=== PATIENT | female | born 1975 | race Caucasian/White ===

== ENCOUNTER 2018-03-21 07:55 | Day surgery (SDC) | payer OTHER ==
[~2018-03-21] VITALS: Ht 157.5 cm; Wt 77.1 kg
--- NOTE | ~2018-03-21 | OR ---
[facility] [address], [place] [address] [place] DATE OF OPERATION: 03/21/2018 SURGEON: Larry Avila MD PREOPERATIVE DIAGNOSIS: Partial-thickness rotator cuff tear, right shoulder. POSTOPERATIVE DIAGNOSIS: Partial-thickness rotator cuff tear, right shoulder. ADDITIONAL DIAGNOSES: 1. Impingement. 2. Right anterior labral tear, right shoulder. PROCEDURE: Right shoulder arthroscopy with debridement of labral tear, debridement of articular surface partial-thickness rotator cuff tear, and a subacromial decompression. ANESTHESIA: General. SPECIMENS AND COMPLICATIONS: There were no specimens or complications. TOURNIQUET: Not used. BLOOD LOSS: Minimal. WHAT WAS DONE: The patient was taken to the operating room. After anesthesia was induced and airway secured, the patient was placed in a modified beach chair position, and prepped and draped in a routine sterile fashion. The bony topography was outlined with a skin marking pen and the arthroscope was introduced into the shoulder joint through the standard posterior portal. Arthroscopy of the shoulder joint revealed an unremarkable glenoid and unremarkable humeral head. The biceps tendon, the biceps anchor were also unremarkable. There was a flap tear of the anterior aspect of the glenoid labrum (about the 3 o'clock position). It was only attached by a tiny stalk. We therefore created an anterior portal using a switching stick technique. Introduced the VAPR electrosurgical PATIENT NAME: ELIANA MATTHEW OPERATIVE REPORT DATE OF : 71 REPORT #: [id number] PHYSICIAN: LARRY AVILA MD PCP: UNASSIGNED DOCTOR REPORT IS CONFIDENTIAL AND NOT TO BE RELEASED WITHOUT AUTHORIZATION [facility] [address] [place], [place] [address] Draft device and removed the labral tear. We then able to identify the subscapularis tendon, which was unremarkable. The biceps tendon was unremarkable. There was a partial-thickness tear of the supraspinatus. Again, we introduced the VAPR and moved it up over the biceps tendon and used it to gently debride the articular surface partial-thickness rotator cuff tear of the supraspinatus. Infraspinatus was unremarkable. There was no additional intra-articular pathology. We then maneuvered the scope into the subacromial space and created an axillary lateral portal. The VAPR was introduced and the rather hemorrhagic subacromial bursitis was encountered. A subacromial bursectomy was done with the VAPR. We then used the VAPR to remove the soft tissue off the undersurface of the acromion. We then introduced a 4 mm barrel clarissa and did a generous subacromial decompression. We then reinspected the bursal surface of the supraspinatus and the infraspinatus as well as the subscap and could not find any additional cuff pathology. The subacromial space was irrigated and drained. The portals were closed. Sterile dressings applied. She was placed in a sling, awakened, and taken to recovery room where she arrived in stable condition. Counts were correct and antibiotic protocols were followed. Larry Avila MD WFB/MODL /[id number] Copies: ~ PATIENT NAME: NANCY MATTHEWTH BAMBI OPERATIVE REPORT DATE OF : 71 REPORT #: [id number] PHYSICIAN: LARRY AVILA MD PCP: UNASSIGNED DOCTOR REPORT IS CONFIDENTIAL AND NOT TO BE RELEASED WITHOUT AUTHORIZATION
[~2018-03-21 07:55] MED LIST: LISINOPRIL5 MG PO; OXYCODONE HCL5 MG PO; RANITIDINE HCL150 MG PO
--- NOTE | 2018-03-21 12:12 | NUR ---
[facility]21[facility]18 [facility] PACU WITH ORAL AIRWAY IN PLACE. 1208 ORAL AIRWAY REMOVED. PT AWAKE WITH NO C/O'S. OXYGEN DECREASED TO 6L VIA MASK WITH SATS 100%. ICE TO R SHOULDER.
--- NOTE | 2018-03-21 12:39 | NUR ---
FAMILY @ BS. ICED WATER GIVEN. CALL LIGHT W/IN REACH.
--- NOTE | 2018-03-21 12:49 | NUR ---
PUDDING GIVEN. PATIENT UP TO BR W/RN ASSIST. PT REPORTS BEING "GROGGY" AND AMBULATES WELL. PATIENT VOIDS AND IS BACK IN BED.
[2018-03-21] MEDS ORDERED: PERCOCET 10-321 EACH PO (13:13)
--- NOTE | 2018-03-21 13:35 | NUR ---
PATIENT DENIES PAIN. TOLERATED PUDDING. REQUESTS MORE TO EAT. SANDWICH AND SOUP ORDERED. VS CHECKED. BP LOW. RIGHT SHOULDER DRESSINGS CDI. MOTHER AT BEDSIDE. CALL LIGHT WITHIN REACH.
--- NOTE | 2018-03-21 14:40 | NUR ---
PATIENT DROWSY, SLEEPING. AWAKENS TO VOICE, BUT THEN FALLS BACK TO SLEEP QUICKLY. DENIES PAIN. VS CHECKED. SON AT BEDSIDE. LUNCH AT BEDSIDE. CALL LIGHT WITHIN REACH. IV SALINE LOCKED.
== END 2018-03-21 15:20 | disposition home or self-care (01) ==
LOC: OPS 07:55 → DS 07:55 → OPS 09:30 → DS 09:30 → OPS 15:20
PROVIDERS: Orthopaedic Surgery
PROC: 0RNJ4ZZ Release Right Shoulder Joint, Percutaneous Endoscopic Approach (ICD-10-PCS; 2018-03-21)
PROC: 0RBJ4ZZ Excision of Right Shoulder Joint, Percutaneous Endoscopic Approach (ICD-10-PCS; principal; 2018-03-21 09:30)
DX: M75.111 Incomplete rotator cuff tear or rupture of right shoulder, not specified as traumatic (principal); M75.51 Bursitis of right shoulder; S43.491A Other sprain of right shoulder joint, initial encounter; M75.41 Impingement syndrome of right shoulder; G47.33 Obstructive sleep apnea (adult) (pediatric); F17.210 Nicotine dependence, cigarettes, uncomplicated; I10 Essential (primary) hypertension; Z79.899 Other long term (current) drug therapy
CPT/HCPCS: 01630; 64415; 76942; J0330; J0690; J0735; J1100; J1885; J2250; J2405; J2704; J2765; J3010; J7120

== ENCOUNTER 2020-08-30 18:39 | Emergency (ER) | payer OTHER ==
[~2020-08-30] VITALS: Ht 157.5 cm; Wt 77.1 kg
[~2020-08-30 18:39] MED LIST changes: +PERCOCET 10-321 EACH PO
[2020-08-30] MEDS ORDERED: ZESTRIL40 MG PO (18:54)
[2020-08-30] MEDS ORDERED: KEFLEX500 MG PO (19:16)
== END 2020-08-30 19:30 | disposition home or self-care (01) ==
LOC: ED 18:39
DX: S00.86XA Insect bite (nonvenomous) of other part of head, initial encounter (principal); W57.XXXA Bitten or stung by nonvenomous insect and other nonvenomous arthropods, initial encounter; I10 Essential (primary) hypertension; F17.200 Nicotine dependence, unspecified, uncomplicated; Z88.5 Allergy status to narcotic agent; Z79.899 Other long term (current) drug therapy
CPT/HCPCS: 99282

== ENCOUNTER 2023-03-18 21:27 | Emergency (ER) | payer OTHER ==
[~2023-03-18] VITALS: Ht 157.5 cm; Wt 72.1 kg
--- OUTSIDE RECORDS SUMMARY | ~2023-03-18 | XMS | Continuity of Care Document ---
Demographics + + + | Address | [address] | | | [place] [address] | + + + | Preferred Language | Unknown | + + + | Marital Status | Never | + + + | Judaism Affiliation | Unknown | + + + | Race | White | + + + | Ethnic Group | Not or | + + + Author + + + | Author | [facility] | + + + | Organization | [facility] | + + + | Address | [address] | | | [place] [address] | + + + | Phone | | + + + Care Team Providers + + + + | Care Cotton Stomper Name | Role | Phone | + + + + Unavailable | Unavailable | + + + + Unavailable | Unavailable | + + + + Allergies and Intolerances + + + + + + | date | description | facility | reaction | severity | + + + + + + | (no date) | Hydrocodone | [facility] | (no reaction) | (no severity) | | [facility] | | | + + + + + + | (no date) | Itching | [facility] | (no reaction) | (no severity) | | | [facility] | | | + + + + + + | (no date) | Hydrocodone | [facility] | (no reaction) | (no severity) | | | | [facility] | | | + + + + + + | (no date) | Hydrocodone | [facility] | (no reaction) | (no severity) | | | | [facility] | | | + + + + + + Encounters No information. Functional Status No information. Immunizations No information. Medications + + + + | date | description | facility | + + + + | 2022-09-04 00:00 | OXYCODONE HCL | [facility] | + + + + | 2022-09-04 00:00 | OXYCODONE | [facility] | | | HCL/ACETAMINOPHEN | | + + + + | 2022-09-04 00:00 | RANITIDINE HCL | [facility] | + + + + | 2022-09-04 00:00 | LISINOPRIL | [facility] | + + + + | 2020-08-30 00:00 | CEPHALEXIN | [facility] | + + + + | 2022-09-04 00:00 | LISINOPRIL | [facility] | + + + + Problems + + + + | date | description | facility | + + + + | 2022-09-04 00:00 | Patient left without being | [facility] | | | seen | | + + + + Procedures No information. Results/Labs No information. Social History No information. Vital Signs + + + +---------+ | date | measurement | value | units | + + + +---------+ | 2022-09-04 00:00 | BMI | 31.1 | kg/m2 | + + + +---------+ | 2022-09-04 00:00 | BP_diastolic | 83 | mmHg | + + + +---------+ | 2022-09-04 00:00 | BP_systolic | 168 | mmHg | + + + +---------+ | 2022-09-04 00:00 | heart_rate | 99 | /min | + + + +---------+ | 2022-09-04 00:00 | height_metric | 157.48 | cm | + + + +---------+ | 2022-09-04 00:00 | height_standard | 62 | in | + + + +---------+ | 2022-09-04 00:00 | o2_saturation | 100 | % | + + + +---------+ | 2022-09-04 00:00 | respiration_rate | 16 | /min | + + + +---------+ | 2022-09-04 00:00 | temperature_metric | 36.72 | C | | | | | | + + + +---------+ | 2022-09-04 00:00 | | 98.1 | F | | | temperature_standar | | | | | d | | | + + + +---------+ | 2022-09-04 00:00 | weight_metric | 77.11 | kg | + + + +---------+ | 2022-09-04 00:00 | weight_standard | 170 | lb | + + + +---------+"
--- OUTSIDE RECORDS SUMMARY | ~2023-03-18 | XMS | Continuity of Care Document ---
Demographics + + + | Address | [facility] [address] | | | [place] [address] | + + + | Preferred Language | Unknown | + + + | Marital Status | Never | + + + | Gnosticism Affiliation | Unknown | + + + | Race | White | + + + | Ethnic Group | Not or | + + + Author + + + | Author | [facility] | + + + | Organization | [facility] | + + + | Address | [address] | | | [place] [address] | + + + | Phone | | + + + Care Team Providers + + + + | Care Sheet Metal Erector Name | Role | Phone | + [...] | 2022-09-04 00:00 | OXYCODONE HCL | [facility] | + + + + | 2022-09-04 00:00 | OXYCODONE | [facility] | | | HCL/ACETAMINOPHEN | | + + + + | 2022-09-04 00:00 | RANITIDINE HCL | [facility] | + + + + | 2022-09-04 00:00 | LISINOPRIL | [facility] | + + + + | 2020-08-30 00:00 | CEPHALEXIN | [facility] | + + + + | 2022-09-04 00:00 | LISINOPRIL | [facility] | + + + + Problems + + + + | date | description | facility | + + + + | 2022-09-04 00:00 | Patient left without being | [facility] | | | seen | | + [...]
[~2023-03-18 21:27] MED LIST changes: +KEFLEX500 MG PO; +ZESTRIL40 MG PO
[2023-03-18 23:13] VITALS: BP 175/95
== END 2023-03-18 23:14 | disposition home or self-care (01) ==
LOC: ED 21:27
DX: S01.01XA Laceration without foreign body of scalp, initial encounter (principal); W22.8XXA Striking against or struck by other objects, initial encounter; F17.200 Nicotine dependence, unspecified, uncomplicated; Z88.5 Allergy status to narcotic agent; Z79.899 Other long term (current) drug therapy; Z23 Encounter for immunization
CPT/HCPCS: 90715